=== PATIENT | female | born 1930 | race Two or more races ===

== ENCOUNTER 2018-01-30 15:36 | Inpatient (IN) | payer MEDICARE ==
[~2018-01-30] VITALS: Ht 157.5 cm; Wt 49.9 kg
[2018-01-30] MEDS ORDERED: ASPIR 8181 MG PO (16:04)
[2018-01-30] MEDS ORDERED: AMLODIPINE BESYL5 MG PO (16:04)
[2018-01-30] MEDS ORDERED: ONDANSETRON HCL INJ 2 MG/ML VIAL IV STA (16:06)
[2018-01-30] MEDS: SODIUM CHLORIDE 0.9% 1000ML 1,000 ML IV SCH ×2 (16:11→17:21)
[2018-01-30] MEDS ORDERED: LISINOPRIL10 MG PO (16:29)
[2018-01-30] MEDS ORDERED: LANTUS 3ML100 UNITS/ SQ (16:29)
[2018-01-30] MEDS ORDERED: NATEGLINIDE120 MG PO (16:29)
[2018-01-30] MEDS ORDERED: METOPROLOL TART50 MG PO (16:29)
[2018-01-30] MEDS ORDERED: PRAVASTATIN SOD20 MG PO (16:29)
--- NOTE | 2018-01-30 16:43 | Diagnostic Imaging Report ---
Exam: Head CT without contrast History: Dizziness, vomiting Comparison studies: None Technique: Axial images were obtained from the skull base to the vertex. Coronal and sagittal images reconstructed from the axial data. Radiation dose: Total DLP: 969 mGy*cm. Estimated effective dose: DLP x 0.015 Intravenous contrast: None Findings: Scalp: No abnormalities. Bones: No fractures, blastic or lytic lesions. Brain sulci: Mildly prominent. Ventricles: Mild compensatory dilatation. No hydrocephalus. Extra-axial spaces: No masses, no fluid collection. Parenchyma: No mass, acute hemorrhage or acute or chronic cortical vascular insults. A few hypodensities in the supratentorial white matter are nonspecific but most compatible with chronic microvascular ischemic changes. Sellar/suprasellar region: No abnormalities. Craniocervical junction: Patent foramen magnum. No Chiari one malformation. Incidental findings: Bilateral lens or placement related to previous cataract surgery. Atherosclerotic calcifications in the carotid siphons and intradural vertebral arteries. IMPRESSION: No acute abnormalities. Chronic findings: 1. Mild generalized volume loss. 2. Mild microvascular ischemic changes. Signed by: Dr. Khai Calvert M.D. on 01/30/2018 4:40 PM
--- NOTE | 2018-01-30 17:11 | Diagnostic Imaging Report ---
EXAMINATION: CXR 2 VIEW - HOPD INDICATION: Dizziness, vomiting, COMPARISON: None FINDINGS: PA and lateral views TUBES and LINES: None. LUNGS: Lungs are well inflated. Lungs are clear. There is no evidence of pneumonia or pulmonary edema. PLEURA: No pleural effusion or pneumothorax. HEART AND MEDIASTINUM: The cardiomediastinal silhouette is unremarkable. There are atherosclerotic calcifications within the aorta. BONES AND SOFT TISSUES: No acute osseous lesion. Rightward convex curvature of the thoracic spine. Soft tissues are unremarkable. UPPER ABDOMEN: No free air under the diaphragm. IMPRESSION: No acute thoracic abnormality. Signed by: DR. Herman Orantes MD on 01/30/2018 5:08 PM
[2018-01-30] MEDS ORDERED: METOPROLOL TARTRATE INJ 1 MG/ML VIAL IV ONE (17:15)
[2018-01-30] MEDS ORDERED: INSULIN REGULAR, HUMAN 100 UNIT/1 ML 3ML VIAL SQ ONE (17:15)
[2018-01-30] MEDS ORDERED: ACETAMINOPHEN 325 MG TAB PO ONE ×2 (17:15→18:00)
[2018-01-30] MEDS ORDERED: SODIUM CHLORIDE 0.9% 1000ML 1,000 ML IV SCH ×2 (17:45→21:15)
[2018-01-30] MEDS ORDERED: ENOXAPARIN SOD INJ 60 MG/0.6 ML SYR SC STA (18:02)
[2018-01-30] MEDS ORDERED: DEXTROSE 50% SYRINGE 50 ML IV PRN (21:15)
[2018-01-30] MEDS: PROMETHAZINE HCL 25 MG TAB PO PRN (21:44)
[2018-01-30] MEDS: TRAMADOL HCL 50 MG TAB PO PRN (21:45)
[2018-01-30 22:00] VITALS: BP 118/74
[2018-01-30] MEDS ORDERED: AMLODIPINE BESYLATE 5 MG TAB PO ONE (22:15)
[2018-01-30 23:31] VITALS: BP 118/74
[2018-01-31] VITALS: BP 127/60
[2018-01-31 01:50] VITALS: BP 127/60
[2018-01-31 04:00] VITALS: BP 130/99
[2018-01-31 05:45] LABS: ALBUMIN/GLOBULIN RATIO 0.8 (0.8-2.0); ANION GAP 15.3 mmol/L (8-16); CALCIUM 9.2 mg/dL (8.4-10.2); CHOL/HDL RATIO 2.6 (3.0-3.6); CREATININE, SERUM 1.23 mg/dL (0.57-1.11); POTASSIUM 4.3 mmol/L (3.5-5.1)
[2018-01-31 06:08] LABS: FREE THYROXINE INDEX 2.5539 (1.4-3.8); THYROID STIMULATING HORMONE 0.431 uIU/mL (0.350-4.940)
[2018-01-31 06:39] LABS: BASOPHILS % 0.2 % (0.0-1.0); EOSINOPHILS % 0.1 % (0.0-6.0); HEMATOCRIT 37.4 % (34.2-44.1); HEMOGLOBIN 12.6 g/dL (12.0-16.0); LYMPHOCYTES # (AUTO) 1.9 (1.0-3.2); LYMPHOCYTES % 18.5 % (18.0-39.1); MEAN CORPUSCULAR HEMOGLOBIN 31.4 pg (28-32); MEAN CORPUSCULAR HGB CONC 33.7 g/dL (31-35); MEAN CORPUSCULAR VOLUME 93.3 fL (81-99); MONOCYTES # (AUTO) 0.6 (0.2-0.8); MONOCYTES % 5.4 % (4.4-11.3); NEUTROPHILS # (AUTO) 7.7 (2.1-6.9); NEUTROPHILS % 75.5 % (38.7-80.0); PLATELET COUNT 210 x10e3/uL (140-360); RED BLOOD COUNT 4.01 x10e6/uL (3.6-5.1); RED CELL DISTRIBUTION WIDTH 12.4 % (11.7-14.4)
[2018-01-31] MEDS: AMLODIPINE BESYLATE 5 MG TAB PO SCH (08:00)
[2018-01-31] MEDS: ASPIRIN 81 MG ENTERIC COATED PO SCH (08:00)
[2018-01-31] MEDS ORDERED: DEXTROSE 50% SYRINGE 50 ML IV PRN (08:30)
[2018-01-31] MEDS ORDERED: METOPROLOL TARTRATE 25 MG TAB PO SCH ×2 (09:00→14:00)
[2018-01-31] MEDS ORDERED: METOPROLOL TARTRATE 50 MG TAB PO SCH (09:00)
[2018-01-31] MEDS ORDERED: ASPIRIN 81 MG CHEW TAB PO ONE (09:15)
[2018-01-31] MEDS: PANTOPRAZOLE SOD 40 MG TABEC PO SCH (09:26)
[2018-01-31] MEDS: LISINOPRIL 10 MG TAB PO SCH ×2 (09:27→17:00)
[2018-01-31] MEDS: PROMETHAZINE HCL 25 MG TAB PO PRN (11:45)
[2018-01-31] MEDS: INSULIN LISPRO 100 UNIT/1 ML 3ML VIAL SQ SCH ×3 (12:01→20:41)
[2018-01-31] MEDS ORDERED: ONDANSETRON HCL INJ 2 MG/ML VIAL IV PRN (12:15)
[2018-01-31 13:10] VITALS: BP 121/66
[2018-01-31] MEDS: METOPROLOL TARTRATE 25 MG TAB PO SCH ×2 (13:50→20:43)
[2018-01-31 20:00] VITALS: BP 129/78
[2018-01-31] MEDS: INSULIN DETEMIR 100 UNIT/ML PEN SQ SCH (20:42)
[2018-01-31] MEDS ORDERED: PRAVASTATIN 20 MG TAB PO SCH ×2 (21:00)
--- NOTE | 2018-01-31 21:53 | Consultation ---
DATE OF CONSULTATION: January 31, 2018 CARDIOLOGY CONSULTATION REASON FOR CONSULTATION: Atrial fibrillation. HISTORY OF PRESENT ILLNESS: Ms. Gerard is an 87-year-old lady with past medical history of hypertension, type-2 diabetes diagnosed over 7 years ago, hypercholesterolemia, who presents to this institution as a transfer from a freestanding ER with recurrent nausea, vomiting, headache, and malaise. Patient was in usual state of health up until yesterday was going to take her granddaughter to [facility], in the garage while sitting down from passenger seat, he was overcome with bouts of repetitive vomiting 4 times, nonbilious, nonbloody without any prodrome. According to son, patient ate chicken agatha noodle the day before from a restaurant and this was different from everybody else in her group. There is no sick contact. Patient denies any chest pain or chest discomfort. She developed severe bitemporal headache with photophobia and just felt overall malaise. At the freestanding ER, she was noted to be in mild acute kidney injury with creatinine of 1.7 and BUN of 28 and also had noted to be in atrial fibrillation with rapid ventricular response, heart rate in the 130s-140s range. She was transferred here for further care and management. She has been rate controlled with simple beta-chaim therapy, which has long since controlled her heart rate and currently, her heart rate in the 70s-80s range on metoprolol therapy. She denies any heart fluttering, racing spells. She had some slight dizziness with the headache and continues to feel this way. She has had further vomiting this morning, which appeared slightly bilious in nature. She denies again no chest pain or discomfort. Cardiac enzymes are pending. EKG reveals atrial fibrillation, but there is no ST/T-wave changes concerning for ischemia. Again, she maintained in atrial fibrillation on telemetry. However, here at this whole ordeal has not noticed that. She has noted before she has previous atrial fibrillation in the past. PAST MEDICAL HISTORY 1. Hypertension, essential. 2. Type-2 diabetes diagnosed 7 years ago. 3. Hypercholesterolemia. PAST SURGICAL HISTORY 1. History of bilateral cataract surgery. 2. History of breast cyst removal. FAMILY HISTORY: Mother and father , unknown. Otherwise, unknown family history. There is no other coronary artery disease as far as she knows. SOCIAL HISTORY: She is a lifelong nonsmoker. Denies any alcohol or illicit drug use. ALLERGIES: NO KNOWN DRUG ALLERGIES. HOME MEDICATIONS 1. Aspirin 81 mg daily. 2. Norvasc 5 mg daily. 3. Lantus 10 units subcutaneously nightly. 4. Lisinopril 10 mg daily. 5. Metoprolol 50 mg b.i.d. 6. Nateglinide 120 mg t.i.d. 7. Pravastatin 20 mg daily. REVIEW OF SYSTEMS REVIEW OF SYSTEMS: HEENT: Positive for headache, photophobia. No sore throat, stiff neck, stuffy nose. RESPIRATORY: Denies any pleuritic chest pain nor shortness of breath. CARDIOVASCULAR: As per HPI. No orthopnea, no PND, no lower extremity swelling. GI: Positive for nausea, vomiting. Denies any abdominal pain, bright red blood per rectum, melena, hematemesis. : Denies any dysuria, pyuria, or changes in urinary frequency. MUSCULOSKELETAL: Denies any back pains, leg swelling, leg pain. NEUROLOGIC: Positive for dizziness. No history of TIA or stroke or seizures. SKIN: No rashes. ID: No known infectious injuries. ENDOCRINE: Positive for history of diabetes. Remainder of review of systems negative otherwise mentioned. PHYSICAL EXAMINATION: VITAL SIGNS: Temperature of 97.5, pulse of 78, blood pressure 130/99, respiratory rate of 18, O2 sat 100% on 2 liters nasal cannula. GENERAL: This is alert lady, who appears ill due to nausea. HEENT: Pupils are equally round and reactive to light. Extraocular movements are intact. Oropharynx is clear. NECK: No elevation of jugular venous pulsation. No carotid bruits. CARDIOVASCULAR: Irregularly irregular rate and rhythm. Normal S1 and S2. Soft 2/6 systolic ejection murmur at the right upper sternal border. LUNGS: Clear to auscultation bilaterally. ABDOMEN: Soft, nontender, nondistended with normoactive bowel sounds. No hepatosplenomegaly. BACK: No costovertebral angle tenderness. EXTREMITIES: Warm with 1+ pedal pulses, 2+ bilateral femoral pulses. NEUROLOGIC: Cranial nerves II-XII are intact. Strength is seemingly 5/5. She is dizzy, but non focal. LABS: White count 10.2, hemoglobin 12.6, hematocrit 37.4, platelets of 310,000. Sodium 138, potassium 4.3, chloride 105, bicarb 22. BUN 25 and creatinine 1.23, improved from 28 and 1.7 respectively. Glucose of 181, calcium of 9.3, magnesium 1.9. Total cholesterol of 185, HDL 72, LDL of 99. TSH is 0.431. Chest x-ray is unremarkable. CT brain shows mild volume loss and calcifications in her carotid arteries. EKG reveals atrial fibrillation and nonspecific ST-T-wave changes. DIAGNOSES: 1. Acute gastrointestinal illness with repeated nausea, vomiting, wide differential diagnosis. 2. Headaches, new onset. 3. Atrial fibrillation, currently with controlled ventricular response, suspect this is just incidental finding 4. Hypertension. 5. Type 2 diabetes. 6. Hypercholesterolemia. PLAN/RECOMMENDATIONS: 1. Will continue beta chaim therapy for rate control. Will go ahead and purse MRI of the brain. 2. Will follow up on echocardiogram findings, preliminary looks like a preserved left ventricular function. 3. Has serial cardiac enzymes, will check to make sure this is not some unusual anginal presentation. 4. Continue aspirin and statin therapy. 5. Aggressive risk factor modification and medical therapy. 6. Will continue to follow this patient with you. 7. Long discussion with family and patient. Job#: [id number] CQ MTDD
--- NOTE | 2018-01-31 21:59 | Consultation ---
ERROR, SEE SEPARATE REPORT Job#: [id number] DR PENA
[2018-02-01] VITALS (9 sets, daily range): BP systolic 111–140; BP diastolic 60–98
[2018-02-01 04:47] LABS: BASOPHILS % 0.3 % (0.0-1.0); EOSINOPHILS % 0.2 % (0.0-6.0); HEMATOCRIT 37.9 % (34.2-44.1); HEMOGLOBIN 12.4 g/dL (12.0-16.0); LYMPHOCYTES # (AUTO) 1.3 (1.0-3.2); LYMPHOCYTES % 11.3 % (18.0-39.1); MEAN CORPUSCULAR HEMOGLOBIN 31.2 pg (28-32); MEAN CORPUSCULAR HGB CONC 32.7 g/dL (31-35); MEAN CORPUSCULAR VOLUME 95.5 fL (81-99); MONOCYTES # (AUTO) 0.5 (0.2-0.8); MONOCYTES % 4.3 % (4.4-11.3); NEUTROPHILS # (AUTO) 9.7 (2.1-6.9); NEUTROPHILS % 83.7 % (38.7-80.0); PLATELET COUNT 191 x10e3/uL (140-360); RED BLOOD COUNT 3.97 x10e6/uL (3.6-5.1); RED CELL DISTRIBUTION WIDTH 12.3 % (11.7-14.4)
[2018-02-01 05:17] LABS: CREATINE KINASE MB 1.2 ng/mL (0-5.0)
[2018-02-01 05:38] LABS: ALBUMIN 2.9 g/dL (3.5-5.0); ALBUMIN/GLOBULIN RATIO 0.8 (0.8-2.0); ANION GAP 14.2 mmol/L (8-16); CALCIUM 9.1 mg/dL (8.4-10.2); CREATININE, SERUM 1.13 mg/dL (0.57-1.11); POTASSIUM 4.2 mmol/L (3.5-5.1)
[2018-02-01] MEDS: METOPROLOL TARTRATE 25 MG TAB PO SCH ×3 (06:04→21:20)
[2018-02-01 06:15] LABS: AMYLASE 81 U/L (25-125); LIPASE 23 U/L (8-78)
[2018-02-01] MEDS: PANTOPRAZOLE SOD 40 MG TABEC PO SCH (07:30)
[2018-02-01] MEDS: INSULIN LISPRO 100 UNIT/1 ML 3ML VIAL SQ SCH ×4 (07:30→20:08)
[2018-02-01] MEDS: AMLODIPINE BESYLATE 5 MG TAB PO SCH ×2 (07:46→12:11)
[2018-02-01] MEDS: LISINOPRIL 10 MG TAB PO SCH (07:46)
[2018-02-01] MEDS: ASPIRIN 81 MG ENTERIC COATED PO SCH (07:46)
[2018-02-01] MEDS ORDERED: LISINOPRIL 20 MG TAB PO SCH (17:00)
[2018-02-01] MEDS: INSULIN DETEMIR 100 UNIT/ML PEN SQ SCH (20:08)
[2018-02-01] MEDS ORDERED: SIMVASTATIN 20 MG TAB PO SCH (21:00)
[2018-02-02] VITALS (7 sets, daily range): BP systolic 122–153; BP diastolic 61–98
[2018-02-02 04:49] LABS: BILIRUBIN,URINE NEGATIVE (NEGATIVE); CLARITY,URINE CLEAR (CLEAR); COLOR,URINE YELLOW (YELLOW); KETONES,URINE NEGATIVE (NEGATIVE); LEUKOCYTE ESTERASE ,URINE NEGATIVE (NEGATIVE); NITRITE,URINE NEGATIVE (NEGATIVE); PROTEIN,URINE DIPSTICK 1+ (NEGATIVE); URINE UROBILINOGEN 0.2 mg/dL (0.2 - 1)
[2018-02-02 04:58] LABS: BACTERIA,URINE FEW /HPF; EPITHELIAL CELLS,URINE RARE /LPF; WBC,URINE (MAN) 0-5 /HPF (0-5)
[2018-02-02] MEDS: METOPROLOL TARTRATE 25 MG TAB PO SCH ×2 (05:17→15:20)
[2018-02-02] MEDS: TRAMADOL HCL 50 MG TAB PO PRN (05:17)
[2018-02-02 05:30] LABS: BASOPHILS % 0.3 % (0.0-1.0); EOSINOPHILS # (AUTO) 0.1 (0.0-0.4); EOSINOPHILS % 1.3 % (0.0-6.0); HEMOGLOBIN 12.6 g/dL (12.0-16.0); LYMPHOCYTES # (AUTO) 2.2 (1.0-3.2); MEAN CORPUSCULAR HEMOGLOBIN 31.4 pg (28-32); MEAN CORPUSCULAR HGB CONC 33.2 g/dL (31-35); MEAN CORPUSCULAR VOLUME 94.8 fL (81-99); MONOCYTES # (AUTO) 0.8 (0.2-0.8); MONOCYTES % 9.2 % (4.4-11.3); NEUTROPHILS # (AUTO) 5.9 (2.1-6.9); NEUTROPHILS % 64.9 % (38.7-80.0); PLATELET COUNT 205 x10e3/uL (140-360); RED BLOOD COUNT 4.01 x10e6/uL (3.6-5.1)
[2018-02-02 06:00] LABS: ANION GAP 11.1 mmol/L (8-16); CALCIUM 8.9 mg/dL (8.4-10.2); CREATININE, SERUM 1.12 mg/dL (0.57-1.11); POTASSIUM 4.1 mmol/L (3.5-5.1)
[2018-02-02] MEDS: INSULIN LISPRO 100 UNIT/1 ML 3ML VIAL SQ SCH ×4 (07:30→20:49)
[2018-02-02] MEDS: ASPIRIN 81 MG ENTERIC COATED PO SCH (08:00)
[2018-02-02] MEDS: AMLODIPINE BESYLATE 5 MG TAB PO SCH (08:00)
--- NOTE | 2018-02-02 14:19 | Diagnostic Imaging Report ---
Exam: Brain MRI without IV contrast History: Dizziness, vomiting, vertigo, Comparison studies: Head CT 01/30/2018 Technique: Sagittal and axial T2 FS, axial DWI, axial T2*GRE, axial T1 FLAIR and axial coronal T2 FLAIR. Intravenous contrast: None Findings: Scalp: Normal in signal. No masses. Bone marrow: Normal in signal intensity. Brain sulci: Appropriate for age. Ventricles: Normal in size. No hydrocephalus. Extra axial spaces: No mass, no fluid collection. Parenchyma: Acute nonhemorrhagic vascular insult in the left inferomedial cerebellum in the left PICA territory (tonsillar hemispheric territory). Mass effect is local. No mass or acute hemorrhage. Suprasellar region: No abnormalities. Craniocervical junction: Patent foramen magnum. No Chiari malformation. Vessels: Normal flow-voids in the arteries and sinuses. Incidental findings: Intraocular lens replacements related to previous cataract surgery. IMPRESSION: 1. Acute nonhemorrhagic left inferior cerebellar vascular insult (left PICA territory). Mass effect is local without significant herniation or fourth ventricular effacement at this time. 2. No other changes from the previous head CT of 01/30/2018. 3. Mild generalized volume loss. 4. Mild chronic microvascular ischemic changes. Findings discussed with SUZY Eddy at 2:09 PM 02/02/2018. Signed by: Dr. Khai Calvert M.D. on 02/02/2018 2:15 PM
[2018-02-02] MEDS ORDERED: METOPROLOL TARTRATE 50 MG TAB PO SCH (19:01)
[2018-02-02] MEDS: INSULIN DETEMIR 100 UNIT/ML PEN SQ SCH (20:49)
[2018-02-02] MEDS: SIMVASTATIN 40 MG TAB PO SCH (20:49)
[2018-02-02] MEDS ORDERED: SIMVASTATIN 20 MG TAB PO SCH (21:00)
[2018-02-02] MEDS ORDERED: METOPROLOL TARTRATE 25 MG TAB PO SCH (22:00)
[2018-02-02] MEDS: METOPROLOL TARTRATE 50 MG TAB PO SCH (22:56)
[2018-02-03] VITALS (8 sets, daily range): BP systolic 112–148; BP diastolic 70–91
--- NOTE | 2018-02-03 00:52 | Consultation ---
DATE OF CONSULTATION: February 02, 2018 NEUROLOGY CONSULT HISTORY OF PRESENT ILLNESS: Ms. Gerard is an 87-year-old right hand dominant, [place] woman with past medical history significant for hypertension, diabetes mellitus type 2, atrial fibrillation (not on anticoagulation) and chronic kidney disease, admitted to [facility] on January 30, 2018, with nausea and vomiting. On the morning of January 30, 2018, the patient experienced intractable nausea and vomiting with vomitus consisting of partially digested food. Ms. Gerard was taken to a [facility] emergency center for further evaluation. After her evaluation at the [facility] center, the patient was transported to [facility] for admission as an inpatient for further evaluation and treatment of atrial fibrillation with rapid ventricular response. At some point during her hospitalization, Ms. Gerard endorsed dizziness which she further describes as nausea and a heavy sensation affecting her head. Ms. Gerard does not report a visual field cut or other disturbance, dysarthria, aphasia, facial droop, hemiparesis, hemihypoesthesia, poor balance, impairment of gait, or confusion. Due to the patient endorsing dizziness during her hospitalization, an MRI of the brain without contrast was ordered for further evaluation. This study demonstrated an acute infarct in the left inferior cerebellar hemisphere. A neurology consultation was requested for further evaluation and treatment of the patient's acute stroke. Ms. Gerard has not experienced similar symptoms previously. At baseline, Ms. Gerard ambulates without any assistive device such as a walker or cane. In the past 2 years, she had experienced only 1 or 2 falls without significant injury. REVIEW OF SYSTEMS: Nausea, vomiting, numbness affecting both feet (chronic), dizziness, and heaviness of the head. Otherwise, the 12-point review of systems is negative. PAST MEDICAL HISTORY: Hypertension, hyperlipidemia, diabetes mellitus type 2, atrial fibrillation, chronic kidney disease (stage unknown), occasional depression. PAST SURGICAL HISTORY: Bilateral cataract resection. PAST HOSPITALIZATIONS: Surgeries/procedures as listed, hypoglycemia, childbirth times 3. FAMILY MEDICAL HISTORY: The patient's paternal and maternal grandparents are . Their medical histories are unknown. The patient's father is . His medical history is unknown. Ms. Gerard' mother in her late 80s/early 90s from natural causes. Ms. Gerard had 2 brothers and 3 sisters. One brother is from an accident. One brother is alive. His medical history is unknown. All 3 of the patient's sisters are . One is from cancer. The medical histories of the other 2 sisters are unknown. The patient has 2 sons and 1 daughter, all of whom are alive. One son's medical history is unknown. The second son and daughter are reported to be healthy. SOCIAL HISTORY: The patient is . She is retired. There is no reported current or prior tobacco, alcohol, or recreational drug use. HOME MEDICATIONS: Please see the list of home medications. ALLERGIES: NO KNOWN DRUG ALLERGIES. OYSTERS. NO KNOWN ALLERGIES TO LATEX. NO KNOWN ALLERGIES TO IODINE OR OTHER CONTRAST MATERIALS. PHYSICAL EXAMINATION VITAL SIGNS: Height 62 inches, weight 110 pounds, BMI 20.1 kg per meter squared. Blood pressure 138/75 mmHg. Pulse 141 beats per minute. Respiratory rate 18 breaths per minute. Oxygen saturation 98% on room air. GENERAL: The patient is awake and alert, does not appear distressed. HEENT: Normocephalic, atraumatic. Pupils are surgical. Moist mucous membranes. NECK: Supple. No appreciable thyromegaly. No appreciable carotid bruits. CARDIOVASCULAR: S1, S2, irregular rate and rhythm. No murmurs, rubs, or gallops. RESPIRATORY: Clear to auscultation bilaterally. No wheezes, rhonchi, or rales. EXTREMITIES: The skin is warm and dry. No clubbing, cyanosis, or edema. The posterior tibial and dorsalis pedis pulses are 1+ and symmetric. SKIN: No rashes or lesions. NEUROLOGIC Memory/Attention: The patient is awake and alert, oriented to person, place, time, and situation. Cranial Nerves: Cranial nerve I--not tested. Cranial nerve II, III, IV, and --pupils are surgical. Extraocular movements intact. No nystagmus. Cranial nerve V--sensation to light touch and pinprick is intact in the bilateral V1 through V3 distributions. Strength of the temporalis and masseter muscles is within normal limits. Cranial nerve VII--the face is symmetric as are all facial movements. Strength is within normal limits. Cranial nerve VIII--hearing is intact to finger rub bilaterally. Cranial nerve IX, X--the soft palate elevates equally and symmetrically. Cranial nerve XI--normal strength of the bilateral sternocleidomastoid and trapezius muscles. Cranial nerve XII--the tongue protrudes in midline and moves symmetrically from side to side. Strength: Bulk is normal. Strength is 5/5 in the bilateral deltoids, biceps, triceps, wrist flexors and extensors, finger flexors and extensors, intrinsic hand muscles, hip flexors, knee flexors and extensors, ankle dorsiflexion and plantar flexion, and intrinsic foot muscles. Tone is normal. DTRs: Deep tendon reflexes are 1+ and symmetric at the triceps, biceps, brachioradialis, and patellas. Deep tendon reflexes are absent and symmetric at the Achilles. Plantar responses are flexor bilaterally. Sensation: Sensation is intact to light touch and pinprick in both arms and both legs. Cerebellar: [id number] and heel-rapp movements are intact without dysmetria or other impairment. Gait: Deferred. Speech: Spontaneous speech is normal without appreciable dysarthria or aphasia. Repetition is intact. Involuntary Movements: None. Pronator Drift: None. LABORATORY DATA: Unavailable for review at this time. DIAGNOSTIC STUDIES: Multiple electrocardiograms have demonstrated atrial fibrillation with rapid ventricular response. Echocardiogram: Ejection fraction is 65% to 70%. Mild mitral regurgitation and pulmonic insufficiency. Mild to moderate tricuspid regurgitation. The remaining diagnostic studies are unavailable for review at this time. ASSESSMENT AND PLAN: Ms. Gerard is an 87-year-old right hand dominant woman with past medical history significant for hypertension, hyperlipidemia, diabetes mellitus type 2, and atrial fibrillation, admitted to [facility] on January 30, 2018, with atrial fibrillation with rapid ventricular response. Ms. Gerard' neurological examination is nonfocal. Her laboratory data and other diagnostic studies were reviewed previously, but are unavailable for review for the purposes of documentation. 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 RECOMMENDATIONS 1. A bilateral carotid artery ultrasound with Doppler will be ordered to complete a stroke evaluation. 2. Discontinue aspirin. Ms. Gerard will be prescribed Eliquis 2.5 mg by mouth twice daily for stroke prophylaxis. 3. The patient's blood pressures are adequately controlled. Her goal blood pressure is less than 130/70 mmHg. Continue with current antihypertensive medications. 4. The patient's goal total cholesterol is less than 200 with a LDL of less than 70. Ms. Gerard' LDL is not at goal. The dose of Zocor will be increased to 40 mg by mouth at bedtime daily. 5. The patient's hemoglobin A1c is above goal (approximately 9.3 to my recollection). The goal hemoglobin A1c is less than 7.0. Defer treatment of the patient's diabetes mellitus to the primary and other services following the patient. Tight glycemic control is recommended while the patient is in the hospital. 6. Physical therapy has evaluated the patient. Continue with physical therapy while the patient remains in the hospital. 7. GI prophylaxis with Pepcid 20 mg by mouth twice daily with meals. DVT prophylaxis with Eliquis as previously described. 8. Defer treatment of the remaining medical comorbidities to the primary and other services following the patient. Thank you for this consultation. I will continue to follow the patient while she remains in the hospital. TIME SPENT: 70 minutes. Job#: [id number] DIANA PENA
[2018-02-03 04:48] LABS: BASOPHILS % 0.4 % (0.0-1.0); EOSINOPHILS # (AUTO) 0.2 (0.0-0.4); EOSINOPHILS % 2.9 % (0.0-6.0); HEMATOCRIT 40.1 % (34.2-44.1); HEMOGLOBIN 13.2 g/dL (12.0-16.0); LYMPHOCYTES # (AUTO) 2.2 (1.0-3.2); LYMPHOCYTES % 29.2 % (18.0-39.1); MEAN CORPUSCULAR HEMOGLOBIN 30.8 pg (28-32); MEAN CORPUSCULAR HGB CONC 32.9 g/dL (31-35); MEAN CORPUSCULAR VOLUME 93.5 fL (81-99); MONOCYTES # (AUTO) 0.9 (0.2-0.8); MONOCYTES % 12.3 % (4.4-11.3); NEUTROPHILS # (AUTO) 4.2 (2.1-6.9); NEUTROPHILS % 54.8 % (38.7-80.0); PLATELET COUNT 210 x10e3/uL (140-360); RED BLOOD COUNT 4.29 x10e6/uL (3.6-5.1); RED CELL DISTRIBUTION WIDTH 11.9 % (11.7-14.4)
[2018-02-03 05:11] LABS: CREATININE, SERUM 1.07 mg/dL (0.57-1.11)
[2018-02-03] MEDS: METOPROLOL TARTRATE 50 MG TAB PO SCH ×3 (05:22→20:53)
[2018-02-03] MEDS: INSULIN LISPRO 100 UNIT/1 ML 3ML VIAL SQ SCH ×4 (07:30→20:58)
[2018-02-03] MEDS: FAMOTIDINE 20 MG TAB PO SCH ×2 (08:22→17:05)
[2018-02-03] MEDS: AMLODIPINE BESYLATE 5 MG TAB PO SCH (08:22)
[2018-02-03] MEDS: APIXAB 2.5 MG TABLET PO SCH ×2 (08:22→17:05)
[2018-02-03] MEDS: SIMVASTATIN 40 MG TAB PO SCH (20:58)
[2018-02-03] MEDS: INSULIN DETEMIR 100 UNIT/ML PEN SQ SCH (20:58)
[2018-02-04] VITALS (7 sets, daily range): BP systolic 122–145; BP diastolic 62–83
[2018-02-04] MEDS: METOPROLOL TARTRATE 50 MG TAB PO SCH ×3 (06:06→21:22)
[2018-02-04] MEDS: AMLODIPINE BESYLATE 5 MG TAB PO SCH (08:31)
[2018-02-04] MEDS: INSULIN LISPRO 100 UNIT/1 ML 3ML VIAL SQ SCH ×4 (08:31→21:22)
[2018-02-04] MEDS: APIXAB 2.5 MG TABLET PO SCH ×2 (08:31→17:12)
[2018-02-04] MEDS: FAMOTIDINE 20 MG TAB PO SCH ×2 (08:32→17:12)
[2018-02-04] MEDS: SIMVASTATIN 40 MG TAB PO SCH (21:22)
[2018-02-04] MEDS: INSULIN DETEMIR 100 UNIT/ML PEN SQ SCH (21:22)
[2018-02-05] VITALS: BP 137/62
[2018-02-05] MEDS ORDERED: BISACODYL 10 MG SUPP PR PRN (00:30)
[2018-02-05 04:00] VITALS: BP 136/64
[2018-02-05] MEDS: METOPROLOL TARTRATE 50 MG TAB PO SCH ×2 (06:27→13:11)
[2018-02-05] MEDS: INSULIN LISPRO 100 UNIT/1 ML 3ML VIAL SQ SCH ×3 (07:30→16:30)
[2018-02-05 08:18] VITALS: BP 114/72
[2018-02-05] MEDS: POLYETHYLENE GLYCOL 3350 17 GM PACK PO SCH ×2 (10:23→17:18)
[2018-02-05] MEDS: FAMOTIDINE 20 MG TAB PO SCH ×2 (10:23→16:53)
[2018-02-05] MEDS: APIXAB 2.5 MG TABLET PO SCH ×2 (10:23→17:18)
[2018-02-05] MEDS: AMLODIPINE BESYLATE 5 MG TAB PO SCH (10:23)
[2018-02-05 11:08] VITALS: BP 114/72
[2018-02-05 12:08] VITALS: BP 144/69
[2018-02-05 16:27] VITALS: BP 113/58
[2018-02-05] MEDS ORDERED: eliquis PO (16:55)
== END 2018-02-05 17:25 | disposition home or self-care (01) | DRG 308 ==
LOC: FSED 15:36 → ERHOLD 17:59 → IMCU 19:08 → MED/SURG 02-03 22:31
PROVIDERS: ADMIT Family Medicine; ATTEND Family Medicine
DX: I48.91 Unspecified atrial fibrillation (principal); I63.9 Cerebral infarction, unspecified; Z79.01 Long term (current) use of anticoagulants; E78.5 Hyperlipidemia, unspecified; E11.65 Type 2 diabetes mellitus with hyperglycemia; Z79.4 Long term (current) use of insulin; E11.22 Type 2 diabetes mellitus with diabetic chronic kidney disease; I12.9 Hypertensive chronic kidney disease with stage 1 through stage 4 chronic kidney disease, or unspecified chronic kidney disease; N18.9 Chronic kidney disease, unspecified; K59.00 Constipation, unspecified; K52.9 Noninfective gastroenteritis and colitis, unspecified; G43.909 Migraine, unspecified, not intractable, without status migrainosus
CPT/HCPCS: 36415; 51700; 70450; 70551; 71046; 80048; 80053; 80061; 81001; 82150; 82550; 82553; 82948; 83036; 83690; 83735; 84436; 84443; 84479; 84484; 85025; 85610; 93005; 93306; 93880; 96372; 99285; J2405; J7030